=== PATIENT | female | born 1990 | race Caucasian/White ===

== ENCOUNTER 2016-06-08 17:20 | Emergency (ER) | payer OTHER ==
[2016-06-08 17:27] VITALS: BP 115/71; PULSE 68; TEMP 98.1; BMI 25.0
--- NOTE | 2016-06-08 17:52 | PDOC ---
History of Present Illness - General Chief Complaint: Ear Problem Stated Complaint: HEADACHE Time Seen by Provider: 06/08/16 17:29 - History of Present Illness Initial Comments: 06/08/16 19:00 Pt. is a 25 y/o female with no PMH who presents to the ED with a complaint of a headache. Pt. states that the pain starts behind her right ear and that she can feel "bumps". The bumps cause a shooting pain to her head. She states that it started on Tuesday and her symptoms have been intermittent. States that Tylenol has helped a little. Came to the ED for evaluation. Denies LOC, weakness, dizziness, visual changes, hearing changes, photophobia and phonophobia. Denies N/V/D. Past History - Past Medical History Allergies/Adverse Reactions: Allergies Allergy/AdvReac Type Severity Reaction Status Date / Time Sulfa (Sulfonamide Allergy Mild Rash Verified 06/08/16 17:21 Antibiotics) Home Medications: Ambulatory Orders NK [No Known Home Medication] 06/08/16 Asthma: Yes Cancer: No Cardiac Disorders: No Diabetes: No HTN: No Suicide Attempt (Hx): No Seizures: No Thyroid Disease: No - Reproductive History (#): 2 Para: 0 Therapeutic (s) & number: No Spontaneous : 1 - Immunization History Immunization Up to Date: Yes - Psycho/Social/Smoking Cessation Hx Anxiety: No Suicidal Ideation: No Smoking History: Never smoked Have you smoked in the past 12 months: No Number of Cigarettes Smoked Daily: 0 Cigars Per Day: 0 Information on smoking cessation initiated: No Hx Alcohol Use: No Drug/Substance Use Hx: No Substance Use Type: None Hx Substance Use Treatment: No *Physical Exam - Vital Signs Last Vital Signs Temp Pulse Resp BP Pulse Ox 98.1 F 68 18 115/71 100 06/08/16 17:21 06/08/16 17:21 06/08/16 17:21 06/08/16 17:21 06/08/16 17:21 - Physical Exam Comments: 06/08/16 19:03 GENERAL: Well developed, well nourished. Awake and alert. No acute distress. HEENT: Normocephalic, atraumatic. PERRLA, EOMI. No conjunctival pallor. Sclera are non- icteric. Moist mucous membranes. Oropharynx is clear. SKIN: 2 mobile cysts behind the R ear. No erythema or active drainage. Tenderness to palpation. Warm and dry. Normal capillary refill. No rashes. No jaundice. NEUROLOGICAL: Alert, awake, appropriate. Cranial nerves 2-12 intact. No deficits to light touch and temperature in face, upper extremities and lower extremities. No motor deficits in the in face, upper extremities and lower extremities. Normoreflexic in the upper and lower extremities. Normal speech. Toes are down- going bilaterally. Gait is normal without ataxia. Medical Decision Making - Medical Decision Making 06/08/16 19:08 Pt is a 25 y/o female with no PMH who presents with cysts behind her right ear. They are mobile, small, closed and non-draining with no evidence of cellulitis. Will discharge home at this time with instructions for warm water soaks. Pt is instructed to use her over the counter acne medication on the affected area. Toradol given for residual headache. *DC/Admit/Observation/Transfer Diagnosis at time of Disposition: Cyst on ear - Discharge Dispostion Disposition: HOME Condition at time of disposition: Stable - Referrals Referrals: Aidee Brewer MD [Primary Care Provider] - - Patient Instructions Additional Instructions: You have cysts on your ear which is causing your headache. To help relieve the pain you may use warm compresses and over the counter acne medication. This will help to open the cyst and drain. Follow up with your primary care doctor within the week. Return to the ED if your headaches get worse or change, or if your symptoms change
[2016-06-08] MEDS ORDERED: KETOROLAC TROMETHAMINE 60 MG/2 ML VIAL IM ONE (18:08)
[2016-06-08] MEDS ORDERED: KETOROLAC TROMETHAMINE 60 MG/2 ML VIAL ONE (18:46)
== END 2016-06-08 19:21 | disposition home or self-care (01) ==
LOC: JERFT 17:20 → JER 17:20 → JERFT 19:21
PROC: 3E0233Z Introduction of Anti-inflammatory into Muscle, Percutaneous Approach (ICD-10-PCS; principal; 2016-06-08)
DX: R51 Headache (principal); Q18.1 Preauricular sinus and cyst
CPT/HCPCS: 84703; 96372; 99281-25

== ENCOUNTER 2016-08-14 08:19 | Emergency (ER) | payer OTHER ==
[2016-08-14 08:26] VITALS: BP 104/75; PULSE 67; TEMP 98.2
--- NOTE | 2016-08-14 08:43 | PDOC ---
History of Present Illness - General Chief Complaint: Pain Stated Complaint: toe pain WOUND Time Seen by Provider: 08/14/16 08:33 History Source: Patient Exam Limitations: No Limitations - History of Present Illness Initial Comments: 08/14/16 08:44 25 yr female with pain and swelling to the great toe right foot. started after cutting toenail short 2 days ago. no fever or chills. Severity: reports: mild Pain Location: reports: lower extremity Past History - Past Medical History Allergies/Adverse Reactions: Allergies Allergy/AdvReac Type Severity Reaction Status Date / Time Sulfa (Sulfonamide Allergy Mild Rash Verified 08/14/16 08:22 Antibiotics) Home Medications: Ambulatory Orders Cephalexin [Keflex] 250 mg PO QID #20 capsule 08/14/16 Asthma: Yes Cancer: No Cardiac Disorders: No Diabetes: No HTN: No Suicide Attempt (Hx): No Seizures: No Thyroid Disease: No - Reproductive History (#): 2 Para: 0 Therapeutic (s) & number: No Spontaneous : 1 - Immunization History Immunization Up to Date: Yes - Psycho/Social/Smoking Cessation Hx Anxiety: No Suicidal Ideation: No Smoking History: Never smoked Have you smoked in the past 12 months: No Number of Cigarettes Smoked Daily: 0 Cigars Per Day: 0 Information on smoking cessation initiated: No Hx Alcohol Use: No Drug/Substance Use Hx: No Substance Use Type: None Hx Substance Use Treatment: No Trauma Specific PMHX - Complaint Specific PMHX Arthritis: No Back Injury: No Neck Injury: No Hx Sacro Iliac Joint Dysfunction: No Review of Systems - Review of Systems Able to Perform ROS?: Yes Is the patient limited Ukrainian proficient: No Constitutional: No: Symptoms Reported HEENTM: No: Symptoms Reported, Dental Problems Respiratory: No: Symptoms reported Cardiac (ROS): No: Symptoms Reported ABD/GI: No: Symptoms Reported : No: Symptoms Reported Musculoskeletal: Yes: Symptoms Reported *Physical Exam - Vital Signs Last Vital Signs Temp Pulse Resp BP Pulse Ox 98.2 F 67 18 104/75 100 08/14/16 08:24 08/14/16 08:24 08/14/16 08:24 08/14/16 08:24 08/14/16 08:24 - Physical Exam General Appearance: Yes: Nourished, Appropriately Dressed HEENT: positive: EOMI, LORI Gastrointestinal/Abdominal: positive: Normal Bowel Sounds, Soft Musculoskeletal: positive: Normal Inspection Extremity: positive: Normal Capillary Refill, Normal Inspection, Normal Range of Motion Integumentary: positive: Other (right great toe with medial side ingrown toenail , red, swollen with scant pus drainage. no bony tenderness.) Neurologic: positive: Fully Oriented, Alert, Normal Mood/Affect, Normal Response , Motor Strength 5/ Procedures - Additional Procedures Progress: 08/14/16 09:03 wound cleaned with peroxide, bacitracin placed with bandaid Medical Decision Making - Medical Decision Making 08/14/16 08:44 cc: right great toenail pain, redness and pus drainage no fever will treat for ingrown toenail with infection dc inst explained in detail with pt and all questions asked and answered 08/14/16 09:03 *DC/Admit/Observation/Transfer Diagnosis at time of Disposition: Ingrowing toenail with infection - Discharge Dispostion Disposition: HOME Condition at time of disposition: Good - Prescriptions Prescriptions: Cephalexin [Keflex] 250 mg PO QID #20 capsule - Referrals Referrals: Aidee Brewer MD [Primary Care Provider] - Pepe Mejia MD [Staff Physician] - - Patient Instructions Printed Discharge Instructions: DI for Ingrown Toenail Additional Instructions: soak in warm salt water 4-5 times a day for 10 minutes dry completely apply a topical bacitracin ointment and cover with a bandaid take the prescribed antibiotics as directed follow with the licensed nuclear control room operator this week for follow up if not improving
== END 2016-08-14 09:06 | disposition home or self-care (01) ==
LOC: JERFT 08:19
DX: L60.0 Ingrowing nail (principal); L08.89 Other specified local infections of the skin and subcutaneous tissue
CPT/HCPCS: 99281-25

== ENCOUNTER 2017-06-30 18:40 | Emergency (ER) | payer OTHER ==
[2017-06-30 18:57] VITALS: BP 120/62; PULSE 80; TEMP 97.4; BMI 24.7
--- NOTE | 2017-06-30 18:57 | PDOC ---
Rapid Medical Evaluation Time Seen by Provider: 06/30/17 18:53 Medical Evaluation: Allergies Allergy/AdvReac Type Severity Reaction Status Date / Time Sulfa (Sulfonamide Allergy Mild Rash Verified 06/30/17 18:53 Antibiotics) 06/30/17 18:54 I have performed a brief in-person evaluation of this patient. The patient presents with a chief complaint of sore on right side of vaginal since Tuesday getting worse spreading towards buttocks Pertinent physical exam findings: appears well non tender abdomen I have ordered the following: urine ,hsv culture The patient will proceed to the ED for further evaluation.
--- NOTE | 2017-06-30 20:46 | PDOC ---
History of Present Illness - General Chief Complaint: Rash Stated Complaint: RASH Time Seen by Provider: 06/30/17 18:53 History Source: Patient Exam Limitations: No Limitations - History of Present Illness Initial Comments: 06/30/17 20:54 Pt. is a 26 y/o F with no PMH who presents to the ED stating she has a rash in her vaginal area. She states that the area hurt before the bumps came out. She states at first she had a few bumps and since yesterday the amount has increased and now moves towards her rectum. States she is currently being treated for a UTI. Pt. states she still has some dysuria. Pt. states she just finished her menstrual cycle, but is still having some bloody watery like discharge. Pt. is sexually active with one person, but denies using contraceptive. Denies fevers, chills, abdominal pain, n/v/d, frequency, urgency Past History - Travel Traveled outside of the country in the last 30 days: No Close contact w/someone who was outside of country & ill: No - Past Medical History Allergies/Adverse Reactions: Allergies Allergy/AdvReac Type Severity Reaction Status Date / Time Sulfa (Sulfonamide Allergy Mild Rash Verified 06/30/17 18:53 Antibiotics) Home Medications: Ambulatory Orders Acyclovir [Zovirax -] 400 mg PO TID #30 tablet 06/30/17 Asthma: Yes Cancer: No Cardiac Disorders: No COPD: No Diabetes: No HTN: No Seizures: No Thyroid Disease: No - Reproductive History (#): 2 Para: 0 Therapeutic (s) & number: No Spontaneous : 1 - Immunization History Immunization Up to Date: Yes - Suicide/Smoking/Psychosocial Hx Smoking History: Never smoked Have you smoked in the past 12 months: No Number of Cigarettes Smoked Daily: 0 Cigars Per Day: 0 Hx Alcohol Use: No Drug/Substance Use Hx: No Substance Use Type: None Hx Substance Use Treatment: No Review of Systems - Review of Systems Able to Perform ROS?: Yes Comments:: 06/30/17 20:41 CONSTITUTIONAL: Absent: fever, chills, diaphoresis, generalized weakness, malaise, loss of appetite GASTROINTESTINAL: Absent: abdominal pain, abdominal distension, nausea, vomiting, diarrhea, constipation, melena, hematochezia GENITOURINARY: Present: dysuria, gential pain Absent: frequency, urgency, hesitancy, hematuria , flank pain MUSCULOSKELETAL: Absent: myalgia, arthralgia, joint swelling SKIN: Present: rash to genital area Absent: rash, itching, pallor NEUROLOGIC: Absent: headache, focal weakness or paresthesias, dizziness, unsteady gait, seizure, mental status changes, bladder or bowel incontinence PSYCHIATRIC: Absent: anxiety, depression, suicidal or homicidal ideation, hallucinations. Is the patient limited Vietnamese proficient: No *Physical Exam - Vital Signs Last Vital Signs Temp Pulse Resp BP Pulse Ox 97.4 F L 80 19 120/62 99 06/30/17 18:53 06/30/17 18:53 06/30/17 18:53 06/30/17 18:53 06/30/17 18:53 - Physical Exam Comments: 06/30/17 20:41 GENERAL: Well developed, well nourished. Awake and alert. No acute distress. NECK: Supple. Full ROM. No JVD. Carotid pulses 2+ and symmetric, without bruits. No thyromegaly. No lymphadenopathy ABDOMINAL: Soft. Non-tender. Non-distended. No rebound or guarding. No organomegaly. Normoactive bowel sounds. : External exam: papules and vesicles to the labia majora and perineum. TTP of the vesicles. Bloody watery discharge noted at the vaginal opening. Vaginal exam deferred d/t pain. MUSCULOSKELETAL Normal range of motion at all joints. No bony deformities or tenderness. No CVA tenderness. SKIN: Warm and dry. Normal capillary refill. No rashes. No jaundice. NEUROLOGICAL: Alert, awake, appropriate. Cranial nerves 2-12 intact. No deficits to light touch and temperature in face, upper extremities and lower extremities. No motor deficits in the in face, upper extremities and lower extremities. Normoreflexic in the upper and lower extremities. Normal speech. Toes are down- going bilaterally. Gait is normal without ataxia. ED Treatment Course - ADDITIONAL ORDERS Additional order review: Laboratory Results 06/30/17 19:53 Urine HCG, Qual Negative Medical Decision Making - Medical Decision Making 06/30/17 21:35 Pt. is a 26 y/o F who presents to the ED with vesicles and papules to her vaginal area. Clinically the rash appears to be an HSV rash. HSV titers drawn at [facility]. Will clinically treat for first herpes out break. Informed pt she can call for her results next week. Told to f/u with her extension associate. Return precautions given. Pt. understands all dc instructions and all questions were answered. *DC/Admit/Observation/Transfer Diagnosis at time of Disposition: Rash and nonspecific skin eruption - Discharge Dispostion Disposition: HOME Condition at time of disposition: Stable Decision to Admit order: No - Prescriptions Prescriptions: Acyclovir [Zovirax -] 400 mg PO TID #30 tablet - Referrals Referrals: Beatris Nova MD [Primary Care Provider] - - Patient Instructions Printed Discharge Instructions: DI for Genital Herpes Additional Instructions: You have a rash that may be herpes. Please take the acyclovir as directed. This is an antiviral. You may need use gentle soap and water to the area to help clean it. Please continue your antibiotics for urinary tract infection. Please follow up with her primary care/[facility]. Return to the emergency department if worsening pain, fevers, chills, or if you have any changes in your symptoms. - Post Discharge Activity Forms/Work/School Notes: Back to Work
== END 2017-06-30 20:50 | disposition home or self-care (01) ==
LOC: JERFT 18:40
DX: R21 Rash and other nonspecific skin eruption (principal)
CPT/HCPCS: 36415; 84703; 87529; 99281-25

== ENCOUNTER 2018-02-05 18:36 | Emergency (ER) | payer OTHER ==
[2018-02-05 18:49] VITALS: BP 116/72; PULSE 84; TEMP 98.1; BMI 23.3
--- NOTE | 2018-02-05 19:29 | PDOC ---
History of Present Illness - General Chief Complaint: Urinary Problem Stated Complaint: LOW BACK PAIN, URINARY PROBLEM Time Seen by Provider: 02/05/18 19:23 History Source: Patient Exam Limitations: No Limitations - History of Present Illness Initial Comments: 02/05/18 19:23 27 year old woman A1 with a history of asthma, genital herpes diagnosed in June 2017 who presents with inc in urinary frequency for 3 days associated with nausea and mild shaking that resolves with "eating something sweet" now with low back pain radiating into the low abdomen starting this AM described as dull and rated 6/10 unrelieved by Tylenol. The patient reports that June is when she had a new partner, she is sexually active and does not use any form of contraception. For her genital herpes she was given acyclovir for outbreaks for has not had an outbreak since June. The patients LNMP 01/09/18. She has had irregular periods for the past 1.5 years since she stopped using depo in 2015. The patient had a pap smear on Jan 19 with negative STI workup and on Feb 02 was seen by her OBGYN for workup of irregular periods without any significant findings. The patient had pink mucous discharge while in the ED after giving a urine sample. The patient denies fever, dysuria, hematuria, vaginal discharge, chest pain, shortness of breath, diarrhea, constipation, recent travel or recent illness. She has no other complaints at bedside. PCP: Rohini OBGYN: Giovanni Past History - Past Medical History Allergies/Adverse Reactions: Allergies Allergy/AdvReac Type Severity Reaction Status Date / Time Sulfa (Sulfonamide Allergy Mild Rash Verified 02/05/18 18:46 Antibiotics) Home Medications: Ambulatory Orders Acyclovir [Zovirax -] 400 mg PO TID #30 tablet 06/30/17 Asthma: Yes Cancer: No Cardiac Disorders: No COPD: No Diabetes: No HTN: No Seizures: No Thyroid Disease: No - Reproductive History (#): 2 Para: 0 Therapeutic (s) & number: No Spontaneous : 1 - Immunization History Immunization Up to Date: Yes - Suicide/Smoking/Psychosocial Hx Smoking History: Never smoked Have you smoked in the past 12 months: No Number of Cigarettes Smoked Daily: 0 Cigars Per Day: 0 Hx Alcohol Use: No Drug/Substance Use Hx: No Substance Use Type: None Hx Substance Use Treatment: No Review of Systems - Review of Systems Able to Perform ROS?: Yes Is the patient limited Slovenian proficient: No Constitutional: No: Chills, Diaphoresis, Fever Respiratory: No: Cough, Orthopnea, Shortness of Breath Cardiac (ROS): No: Chest Pain, Lightheadedness, Palpitations ABD/GI: No: Constipated, Diarrhea, Nausea, Vomiting : Yes: See HPI, Flank Pain. No: Burning, Dysuria, Hematuria Musculoskeletal: Yes: Back Pain Neurological: No: Headache, Numbness, Tingling *Physical Exam - Vital Signs Last Vital Signs Temp Pulse Resp BP Pulse Ox 98.1 F 84 18 116/72 99 02/05/18 18:47 02/05/18 18:47 02/05/18 18:47 02/05/18 18:47 02/05/18 18:47 - Physical Exam Comments: 02/05/18 21:37 GENERAL: Awake, alert, and fully oriented, in no acute distress HEAD: No signs of trauma, normocephalic, atraumatic EYES: EOMI, sclera anicteric, conjunctiva clear ENT: oropharynx clear without exudates. Moist mucosa NECK: Normal ROM, supple LUNGS: No distress, speaks full sentences, clear to auscultation bilaterally HEART: Regular rate and rhythm, normal S1 and S2, no murmurs, rubs or gallops, peripheral pulses normal and equal bilaterally. ABDOMEN: Soft, nontender, normoactive bowel sounds. No guarding, no rebound. No masses BACK: No CVA tenderness EXTREMITIES : Normal inspection, Normal range of motion, no edema. No clubbing or cyanosis. NEUROLOGICAL: Cranial nerves II through XII grossly intact. Normal speech, normal gait, no focal sensorimotor deficits SKIN: Warm, Dry, normal turgor, no rashes or lesions noted PELVIC: slightly opened os with blood in the vaginal canal, no clots, no cervical motion tenderness Moderate Sedation - Procedure Monitoring Vital Signs: Procedure Monitoring Vital Signs Temperature 98.1 F 02/05/18 18:47 Pulse Rate 84 02/05/18 18:47 Respiratory Rate 18 02/05/18 18:47 Blood Pressure 116/72 02/05/18 18:47 O2 Sat by Pulse Oximetry (%) 99 02/05/18 18:47 ED Treatment Course - LABORATORY CBC & Chemistry Diagram: 02/05/18 21:20 02/05/18 21:20 Medical Decision Making - Medical Decision Making 02/05/18 21:35 27 year old woman A1 with a history of asthma, genital herpes diagnosed in June 2017 who presents with inc in urinary frequency for 3 days associated with nausea and mild shaking that resolves with "eating something sweet" now with low back pain radiating into the low abdomen starting this AM described as dull and rated 6/10 unrelieved by Tylenol. The patient reports that June is when she had a new partner, she is sexually active and does not use any form of contraception. For her genital herpes she was given acyclovir for outbreaks for has not had an outbreak since June. The patients LNMP 01/09/18. ED Course: Consider UTI vs pylonephritis vs STI vs diabetes unlikely nephrolithiasis with out exam findings, hematuria cbc, cmp, ua, ucx, upreg, GC 02/05/18 22:03 Labwork - unremarkable. Patient stable for discharge. Informed of all lab and imaging results. Given follow up instructions and strict return precautions. Patient expressed understanding and agree to plan. *DC/Admit/Observation/Transfer Diagnosis at time of Disposition: Back pain, Urinary frequency - Discharge Dispostion Disposition: HOME Condition at time of disposition: Stable Decision to Admit order: No - Referrals Referrals: Beatris Nova MD [Primary Care Provider] - - Patient Instructions Printed Discharge Instructions: DI for Low Back Pain Additional Instructions: You were seen in the ED for complaints of low back pain and increased urinary frequency. In the ED you were evaluated with labwork. Your results were unremarkable. There does not appear to be an acute need for immediate hospitalization. You are advised to follow up with your Primary Care Physician or OBGYN within 1 week. Return to the ED immediately if you experience worsening increase in urinary frequency, blood in the urine or stool, urinary incontinence or retention, worsening low back pain, fevers or vaginal discharge. - Post Discharge Activity
[2018-02-05] MEDS ORDERED: SODIUM CHLORIDE 1,000 ML IV SCH (19:30)
--- NOTE | 2018-02-05 21:02 | PDOC ---
Attending Attestation - HPI HPI: 02/05/18 21:11 The patient is a 27 year old female, with a significant past medical history of asthma and genital herpes (Acyclovir as needed), who presents to the emergency department with complaint of increased in urinary frequency since Tuesday and new onset of low back pain and associated nausea and chills. The patient denies chest pain, shortness of breath, headache and dizziness. The patient denies fever, vomit, diarrhea and constipation. The patient denies dysuria, urgency and hematuria. Allergies: NKDA - Physicial Exam PE: 02/05/18 21:11 GENERAL: Awake, alert, and fully oriented, in no acute distress HEAD: No signs of trauma EYES: PERRLA, EOMI, sclera anicteric, conjunctiva clear ENT: Auricles normal inspection, hearing grossly normal, nares patent, oropharynx clear without exudates. Moist mucosa NECK: Normal ROM, supple, no lymphadenopathy, JVD, or masses LUNGS: Breath sounds equal, clear to auscultation bilaterally. No wheezes, and no crackles HEART: Regular rate and rhythm, normal S1 and S2, no murmurs, rubs or gallops ABDOMEN: Soft, nontender, normoactive bowel sounds. No guarding, no rebound. No masses EXTREMITIES: Normal range of motion, no edema. No clubbing or cyanosis. No cords, erythema, or tenderness NEUROLOGICAL: Cranial nerves II through XII grossly intact. Normal speech, normal gait SKIN: Warm, Dry, normal turgor, no rashes or lesions noted. PELVIC: deferred to resident. - Medical Decision Making 02/05/18 21:11 Documentation prepared by Juliane Green, acting as medical technologist microbiology for Rhona Arreguin MD <Juliane Green - Last Filed: 02/05/18 21:11> - Resident Resident Name: Rekha Oseguera - ED Attending Attestation I have performed the following: I have examined & evaluated the patient, The case was reviewed & discussed with the resident, I agree w/resident's findings & plan - HPI HPI: 02/05/18 21:01 Pt comes for frequncy of urination and burning and hx of herpes genitalis. - Physicial Exam PE: 02/05/18 21:02 Agree with reisdent exam - Medical Decision Making 02/05/18 22:02 Labs UA all normal; exam normal; no herpes; no adnexal tendeness; no CMT. Pt can go home. <Rhona Arreguin - Last Filed: 02/05/18 22:02>
[2018-02-05 21:42] LABS: URINE APPEARANCE CLEAR; URINE BILIRUBIN NEGATIVE (<2.0 mg/dL); URINE COLOR STRAW; URINE GLUCOSE (UA) NEGATIVE (NEGATIVE); URINE KETONE NEGATIVE (NEGATIVE); URINE LEUK ESTERASE TRACE (NEGATIVE); URINE NITRITE NEGATIVE (NEGATIVE); URINE PROTEIN NEGATIVE (NEGATIVE); URINE UROBILINOGEN NEGATIVE mg/dL (0.2-1.0)
[2018-02-05 21:52] LABS: BASO % 1.3 % (0-2.0); EOS % 2.8 % (0-4.5); HEMATOCRIT 41.9 % (32.4-45.2); HEMOGLOBIN 13.9 GM/dL (10.7-15.3); LYMPH % 29.3 % (8-40); MCH 29.9 pg (25.7-33.7); MCHC 33.2 g/dl (32.0-36.0); MEAN CELL VOLUME 90.2 fl (80-96); MEAN PLT VOLUME 8.7 fl (7.5-11.1); MONO % 6.4 % (3.8-10.2); NEUT % 60.2 % (42.8-82.8); PLATELET COUNT 267 K/MM3 (134-434); RBC 4.64 M/mm3 (3.60-5.2); RDW 13.5 % (11.6-15.6); WHITE BLOOD COUNT 7.2 K/mm3 (4.0-10.0)
[2018-02-05 21:56] LABS: ALBUMIN 4.2 g/dl (3.4-5.0); ALK PHOS 57 U/L (45-117); ANION GAP 8 MMOL/L (8-16); BILIRUBIN,TOTAL 0.3 mg/dL (0.2-1); BLOOD UREA NITROGEN 9 mg/dL (7-18); CHLORIDE 107 mmol/L (98-107); CO2 25 mmol/L (21-32); CREATININE 0.6 mg/dL (0.55-1.3); GLUCOSE,RANDOM 93 mg/dL (74-106); POTASSIUM 4.1 mmol/L (3.5-5.1); SGOT/AST 15 U/L (15-37); SGPT/ALT 17 U/L (13-61); SODIUM 139 mmol/L (136-145); TOT PROT 7.3 g/dl (6.4-8.2)
[2018-02-05 21:58] LABS: EPI CELLS RARE /HPF (FEW); URINE BACTERIA RARE /hpf (NONE SEEN); URINE MUCUS RARE
== END 2018-02-05 22:33 | disposition home or self-care (01) ==
LOC: JER 18:36
DX: M54.5 Low back pain (principal); R35.0 Frequency of micturition; Z86.19 Personal history of other infectious and parasitic diseases
CPT/HCPCS: 36415; 80053; 81003; 81015; 84703; 85025; 87086; 87491; 87591; 99281-25; J7030

== ENCOUNTER 2019-04-01 18:05 | Emergency (ER) | payer OTHER ==
[2019-04-01 18:10] VITALS: BP 128/66; PULSE 77; TEMP 97.9; BMI 22.9
[2019-04-01] MEDS ORDERED: PHENAZOPYRIDINE HCL 100 MG TABLET (FP) PO ONE (18:37)
--- NOTE | 2019-04-01 18:41 | PDOC ---
History of Present Illness - General Chief Complaint: Urinary Problem Stated Complaint: UTI SYMPTOMS Time Seen by Provider: 04/01/19 18:11 History Source: Patient Exam Limitations: Clinical Condition - History of Present Illness Initial Comments: 04/01/19 18:37 Patient with no significant past medical history present with complaint of 1 day history of urinary frequency, burning with urination, urinary urgency and intermittent suprapubic discomfort. Patient reported using [id number] Azo medication which mildly helped with symptoms today. Denies nausea, vomiting , fever, chills, back pain, diarrhea, weakness. Denies any other symptoms Is this a multiple visit Asthma Patient?: No Timing/Duration: 4-6 hours Past History - Past Medical History Allergies/Adverse Reactions: Allergies Allergy/AdvReac Type Severity Reaction Status Date / Time Sulfa (Sulfonamide Allergy Mild Rash Verified 04/01/19 18:10 Antibiotics) Home Medications: Ambulatory Orders Acyclovir [Zovirax -] 400 mg PO TID #30 tablet 06/30/17 Nitrofurantoin Monohyd/M-Cryst [Macrobid -] 100 mg PO BID #14 capsule 04/01/19 Phenazopyridine HCl [Pyridium -] 100 mg PO PC #6 tablet 04/01/19 Asthma: Yes Cancer: No Cardiac Disorders: No COPD: No Diabetes: No Disorders: Yes (frequent UTI's) HTN: No Seizures: No Thyroid Disease: No - Reproductive History (#): 2 Para: 0 Therapeutic (s) & number: No Spontaneous : 1 - Immunization History Immunization Up to Date: Yes - Psycho Social/Smoking Cessation Hx Smoking History: Never smoked Have you smoked in the past 12 months: No Number of Cigarettes Smoked Daily: 0 Cigars Per Day: 0 Hx Alcohol Use: No Drug/Substance Use Hx: No Substance Use Type: None Hx Substance Use Treatment: No Review of Systems - Review of Systems Able to Perform ROS?: Yes Is the patient limited Kinyarwanda proficient: No Constitutional: No: Chills, Fever, Malaise HEENTM: No: Symptoms Reported, See HPI, Eye Pain, Blurred Vision, Tearing, Recent change in vision, Double Vision, Cataracts, Ear Pain, Ocular Prothesis, Ear Discharge, Nose Pain, Nose Congestion, Tinnitus, Nose Bleeding, Hearing Loss , Throat Pain, Throat Swelling, Mouth Pain, Dental Problems, Difficulty Swallowing, Mouth Swelling, Other Respiratory: No: Symptoms reported, See HPI, Cough, Orthopnea, Shortness of Breath, SOB with Exertion, SOB at Rest, Stridor, Wheezing, Productive cough, Hemoptysis, Other Cardiac (ROS): No: Symptoms Reported, See HPI, Chest Pain, Edema, Irregular Heart Rate, Lightheadedness, Palpitations, Syncope, Chest Tightness, Other ABD/GI: No: Symptoms Reported, See HPI, Constipated, Diarrhea, Nausea, Vomiting , Abdominal cramping : Yes: Symptoms Reported, See HPI, Burning, Dysuria, Frequency, Urgency. No: Discharge, Flank Pain, Hematuria Musculoskeletal: Yes: Symptoms Reported, See HPI. No: Back Pain All Other Systems: Reviewed and Negative *Physical Exam - Vital Signs Last Vital Signs Temp Pulse Resp BP Pulse Ox 97.9 F 77 18 128/66 100 04/01/19 18:08 04/01/19 18:08 04/01/19 18:08 04/01/19 18:08 04/01/19 18:08 - Physical Exam General Appearance: Yes: Nourished, Appropriately Dressed. No: Apparent Distress HEENT: positive: Normal ENT Inspection Neck: positive: Supple Respiratory/Chest: positive: Lungs Clear, Normal Breath Sounds. negative: Respiratory Distress, Accessory Muscle Use Cardiovascular: positive: Regular Rhythm, Regular Rate Gastrointestinal/Abdominal: positive: Normal Bowel Sounds, Flat, Soft. negative : Tender, Organomegaly, Distended, Guarding, Rebound Musculoskeletal: positive: Normal Inspection. negative: CVA Tenderness Extremity: positive: Normal Inspection, Normal Range of Motion Integumentary: positive: Normal Color Neurologic: positive: Fully Oriented, Alert, Normal Mood/Affect, Normal Response Medical Decision Making - Medical Decision Making 04/01/19 18:38 Patient with no significant past medical history present with complaint of 1 day history of urinary frequency, burning with urination, urinary urgency and intermittent suprapubic discomfort. Patient reported using [id number] Azo medication which mildly helped with symptoms today. Denies nausea, vomiting , fever, chills, back pain, diarrhea, weakness. Denies any other symptoms Clinical exam unremarkable with no abdominal tenderness and no CVA tenderness. Patient symptoms likely cystitis. UA, urine culture and urine hCG level sent. Pyridium 200 mg p.o. ordered for dysuria 04/01/19 18:58 UA shows leukocytosis. Urine hCG negative. Patient stable for discharge unremarkable and antibiotics for UTI pending urine culture result with advised to increase fluid intake and follow-up with PCP Discharge - Discharge Information Problems reviewed: Yes Clinical Impression/Diagnosis: Urinary tract infection Qualifiers: Urinary tract infection type: acute cystitis Hematuria presence: without hematuria Qualified Code(s): N30.00 - Acute cystitis without hematuria Condition: Stable Disposition: HOME - Admission No - Additional Discharge Information Prescriptions: Nitrofurantoin Monohyd/M-Cryst [Macrobid -] 100 mg PO BID #14 capsule Phenazopyridine HCl [Pyridium -] 100 mg PO PC #6 tablet - Follow up/Referral - Patient Discharge Instructions Patient Printed Discharge Instructions: DI for Urinary Tract Infection (UTI) Additional Instructions: Take prescribed medication as prescribed for UTI. Increase fluid intake. You will be contacted with urine culture results if change of antibiotics is needed. Follow-up with primary care as needed - Post Discharge Activity
[2019-04-01] MEDS ORDERED: PHENAZOPYRIDINE HCL 100 MG TABLET (FP) ONE (18:43)
[2019-04-01 18:49] LABS: HYALINE CASTS 0 /lpf (0-8); PH,URINE 5.5 (5.0-8.0); URINE APPEARANCE CLEAR; URINE BACTERIA 2.4 /hpf (NEGATIVE); URINE BILIRUBIN NEGATIVE (NEGATIVE); URINE COLOR DK YELLOW; URINE GLUCOSE (UA) NEGATIVE (NEGATIVE); URINE KETONE NEGATIVE (NEGATIVE); URINE LEUK ESTERASE 2+ (NEGATIVE); URINE NITRITE POSITIVE (NEGATIVE); URINE PROTEIN NEGATIVE (NEGATIVE); URINE RBC 0 /hpf (0-4); URINE WBC 20 /hpf (0-5)
== END 2019-04-01 18:58 | disposition home or self-care (01) ==
LOC: JERFT 18:05
DX: N30.00 Acute cystitis without hematuria (principal); Z87.440 Personal history of urinary (tract) infections; Z87.09 Personal history of other diseases of the respiratory system
CPT/HCPCS: 81003; 84703; 87086; 99283-25

== ENCOUNTER 2021-02-08 19:04 | Emergency (ER) | payer OTHER ==
[2021-02-08 19:50] VITALS: BP 116/76; PULSE 77; TEMP 97.2; BMI 25.7
[2021-02-08] MEDS ORDERED: IBUPROFEN 400 MG TABLET (FP) PO ONE ×2 (20:57→21:10)
== END 2021-02-08 21:56 | disposition home or self-care (01) ==
LOC: JERFT 19:04 → JER 19:04
DX: M25.562 Pain in left knee (principal)
CPT/HCPCS: 99283-25

== ENCOUNTER 2021-02-18 21:28 | Emergency (ER) | payer OTHER ==
[2021-02-18 21:43] VITALS: BP 114/79; PULSE 72; TEMP 98; BMI 26.2
== END 2021-02-18 23:18 | disposition home or self-care (01) ==
LOC: JERFT 21:28
DX: N64.4 Mastodynia (principal)
CPT/HCPCS: 99281-25

== ENCOUNTER 2021-10-31 01:20 | Emergency (ER) | payer OTHER ==
[2021-10-31 01:56] VITALS: BP 131/76; PULSE 92; RESP 16; TEMP 98.4; BMI 24.5
== END 2021-10-31 03:46 | disposition home or self-care (01) ==
LOC: JER 01:20
DX: Z20.2 Contact with and (suspected) exposure to infections with a predominantly sexual mode of transmission (principal)
CPT/HCPCS: 99282-25

== ENCOUNTER 2023-11-10 00:46 | Emergency (ER) | payer OTHER ==
[2023-11-10 00:52] VITALS: BP 119/77; PULSE 80; RESP 18; BMI 24.7
== END 2023-11-10 01:40 | disposition home or self-care (01) ==
LOC: JER 00:46
DX: N89.8 Other specified noninflammatory disorders of vagina (principal); R21 Rash and other nonspecific skin eruption; L23.9 Allergic contact dermatitis, unspecified cause
CPT/HCPCS: 99283-25